=== PATIENT | male | born 1960 | race Caucasian/White ===

== ENCOUNTER 2017-01-15 15:38 | Inpatient (IN) | payer OTHER ==
[~2017-01-15] VITALS: Ht 167.6 cm; Wt 86.2 kg
[~2017-01-15 15:38] MED LIST: AMOX1TAB16 PO; ATOR20TA65 PO; INSU100C3 SQ; SILV20CR15 TP
[2017-01-15] MEDS ORDERED: METF10002 PO (16:13)
[2017-01-15] MEDS ORDERED: KETOROLAC 60MG/2ML VIAL IM ONE (18:15)
[2017-01-15] MEDS ORDERED: HYDROCODONE/ACETAMINOPHEN 5/325MG TABLET PO ONE (18:15)
[2017-01-15 19:29] LABS: BASOPHILS % 0.4 % (0.0-2.0); EOSINOPHILS % 0.5 % (0.0-5.0); HEMATOCRIT. 39.9 % (42.0-52.0); HEMOGLOBIN. 13.4 g/dL (14.0-18.0); MEAN CORPUSCULAR HEMOGLOBIN 26.2 pg (28.0-32.0); MEAN CORPUSCULAR VOLUME 77.7 fL (80.0-94.0); MEAN PLATELET VOLUME 7.9 fl (7.4-10.4); MONOCYTES % 6.2 % (2.0-8.0); NEUTROPHILS % 84.9 % (40.0-76.0); PLATELET 201 x1000/uL (130-400); RED BLOOD CELL COUNT 5.13 mill/uL (4.7-6.1); RED CELL DISTRIBUTION WIDTH 13.7 % (11.6-14.6)
[2017-01-15 19:39] LABS: CARBON DIOXIDE 29 mEq/L (21-32); CHLORIDE 108 mEq/L (98-107)
[2017-01-15 20:44] LABS: CLARITY URINE CLEAR (CLEAR); COLOR URINE YELLOW (YELLOW); GLUCOSE URINE NEGATIVE (NEGATIVE); KETONES URINE TRACE (NEGATIVE); LEUKOCYTE ESTERASE URINE NEGATIVE (NEGATIVE); NITRITE URINE NEGATIVE (NEGATIVE); OCCULT BLOOD URINE NEGATIVE (NEGATIVE); PH URINE 6.5 (4.5-8.0); PROTEIN URINE TRACE (NEGATIVE); SPECIFIC GRAVITY URINE 1.032 (1.005-1.030)
[2017-01-16 03:45] VITALS: BP 133/69
[2017-01-16 04:36] VITALS: BP 133/69
[2017-01-16 08:00] VITALS: BP 130/77
[2017-01-16] MEDS ORDERED: DEXTROSE 50% WATER 50ML SYRINGE IV PRN (08:15)
[2017-01-16] MEDS ORDERED: ATENOLOL 50 MG TABLET PO SCH (09:00)
[2017-01-16] MEDS ORDERED: ASPIRIN 81MG EC TABLET PO SCH (09:00)
[2017-01-16] MEDS: METFORMIN HCL 500MG TABLET PO SCH ×2 (09:28→17:15)
[2017-01-16] MEDS ORDERED: ASPI-867 PO (09:31)
[2017-01-16] MEDS ORDERED: ATEN50TA PO (09:31)
[2017-01-16 12:00] VITALS: BP 130/71
[2017-01-16] MEDS: BLOOD SUGAR DIAGNOSTIC STRIP TEST SCH ×3 (13:17→21:48)
[2017-01-16] MEDS: INSULIN LISPRO 100 UNITS/ML SUBCUT SCH ×3 (13:21→21:00)
[2017-01-16 16:00] VITALS: BP 110/54
[2017-01-16 20:00] VITALS: BP 111/70
[2017-01-16] MEDS ORDERED: ATORVASTATIN CALCIUM 40MG TABLET PO SCH (21:00)
[2017-01-16] MEDS ORDERED: ATORVASTATIN CALCIUM 20MG TABLET PO SCH (21:00)
[2017-01-17] MEDS ORDERED: ATENOLOL 50 MG TABLET PO SCH (09:00)
[2017-01-17] MEDS ORDERED: ASPIRIN 325MG EC TABLET PO SCH (09:00)
== END 2017-01-16 23:55 | disposition short-term general hospital (02) | DRG 563 ==
LOC: ER 17:58 → 6EST 18:53 → ENRESERV 01-16 02:42
PROVIDERS: ADMIT Internal Medicine; ATTEND Internal Medicine
DX: S92.101A Unspecified fracture of right talus, initial encounter for closed fracture (principal); S82.851A Displaced trimalleolar fracture of right lower leg, initial encounter for closed fracture; E11.9 Type 2 diabetes mellitus without complications; I10 Essential (primary) hypertension; S82.51XA Displaced fracture of medial malleolus of right tibia, initial encounter for closed fracture; Z79.4 Long term (current) use of insulin; Z79.82 Long term (current) use of aspirin; Z79.84 Long term (current) use of oral hypoglycemic drugs; Z86.73 Personal history of transient ischemic attack (TIA), and cerebral infarction without residual deficits; W11.XXXA Fall on and from ladder, initial encounter; Y93.89 Activity, other specified; Y92.89 Other specified places as the place of occurrence of the external cause; Y99.8 Other external cause status
CPT/HCPCS: 29515; 36415; 73600; 73620; 80048; 81001; 82962; 85025; 93005; 96372; 99285; J1885

== ENCOUNTER → 2017-04-16 | Day surgery (SDC) | payer OTHER ==
[~2017-04-16] MED LIST changes: +ASPI-867 PO; +ATEN50TA PO; +LIDOCAINE HCL 1% 20ML VIAL (Pyxis) INJ ONE; +METF10002 PO; +SILV20CR13 TP; -SILV20CR15 TP
== END ==
LOC: RADANGIO 12:50
PROVIDERS: ATTEND Podiatrist Foot & Ankle Surgery
DX: Z98.890 Other specified postprocedural states (principal)
CPT/HCPCS: 36569; 71010; 76937; 77001; C1725; J3490

== ENCOUNTER → 2017-04-22 | Outpatient (CLI) | payer OTHER ==
[~2017-04-22] MED LIST changes: -LIDOCAINE HCL 1% 20ML VIAL (Pyxis) INJ ONE
== END | disposition home or self-care (01) ==
LOC: RAD 09:30
PROVIDERS: ATTEND Podiatrist Foot & Ankle Surgery
DX: M25.571 Pain in right ankle and joints of right foot (principal); Z98.890 Other specified postprocedural states
CPT/HCPCS: 73610; 73630

== ENCOUNTER 2017-07-30 14:08 | Emergency (ER) | payer OTHER ==
[~2017-07-30] VITALS: Ht 152.4 cm; Wt 68.0 kg
[~2017-07-30 14:08] MED LIST changes: +ASA5EC PO; -ASPI-867 PO; +METF-416 PO; -METF10002 PO
[2017-07-30 14:54] VITALS: BP 121/75
== END 2017-07-30 20:56 | disposition left against medical advice (07) ==
LOC: ER 14:58
DX: Z45.2 Encounter for adjustment and management of vascular access device (principal); Z53.21 Procedure and treatment not carried out due to patient leaving prior to being seen by health care provider

== ENCOUNTER → 2017-07-31 | Outpatient (CLI) | payer OTHER ==
[~2017-07-31] MED LIST changes: -ASA5EC PO; +ASPI-867 PO; -METF-416 PO; +METF10002 PO
== END | disposition home or self-care (01) ==
LOC: RAD 14:36
PROVIDERS: ATTEND Podiatrist Foot & Ankle Surgery
DX: R07.9 Chest pain, unspecified (principal)
CPT/HCPCS: 71046